=== PATIENT | female | born 1945 | race Two or more races ===

== ENCOUNTER 2024-11-22 10:52 | Emergency (ER) | payer OTHER ==
[~2024-11-22] VITALS: Ht 154.9 cm; Wt 59.4 kg
[2024-11-22] MEDS ORDERED: SYNTHROID75 MCG PO (10:56)
[2024-11-22] MEDS ORDERED: TOPROL XL50 M1 (10:56)
[2024-11-22] MEDS ORDERED: AMLODIPINE (10:56)
[2024-11-22] MEDS ORDERED: 0.9 % SODIUM CHLORIDE 1,000 ML IV SCH (11:15)
[2024-11-22 12:22] LABS: ALT/SGPT 33.0 U/L (12-78); AST/SGOT 18.0 U/L (15-37); BILIRUBIN TOTAL 0.52 mg/dL (0.3-1.2); BUN CREA RATIO 12.0 (7.0-25.0); CREATININE SERUM 0.81 mg/dL (0.55-1.02); GFR 68.21; GLOBULINA 4.0 G/DL (2.4-3.5); GLUCOSE FASTING 118.0 mg/dL (65-100); OSMOLALITY SERUM 278.0 MOSM/KG (275-295)
[2024-11-22 12:33] LABS: BASO % 0.2 % (0.1-1.2); EOS # 0.01 (0.04-0.54); EOS % 0.1 % (0.7-7.0); LYMPH # 1.37 (1.18-3.74); LYMPH % 10.9 % (19.3-53.1); MEAN PLATELET VOLUME 9.60 fl (9.4-12.4); MONO # 0.62 (0.24-0.82); MONO % 4.9 % (4.7-12.5); NEUT # 10.51 (1.56-6.13); NEUT % 83.2 % (34.0-71.1); RED CELL DISTRIBUTION WIDTH 12.9 % (11.6-14.4)
[2024-11-22 12:42] LABS: COVID-19 AG NEGATIVE (NEGATIVE)
[2024-11-22 14:25] LABS: URINE APPEARANCE Clear; URINE BILIRRUBIN Negative (NEGATIVE); URINE BLOOD Negative; URINE COLOR Yellow; URINE GLUCOSE Negative (NEGATIVE); URINE KETONE Negative (NEGATIVE); URINE LEUKOCYTE Small; URINE NITRATE Negative; URINE PROTEIN Negative (NEGATIVE); URINE UROBILINOGEN 1.0 E.U./dl
[2024-11-22 14:26] LABS: URINE EPITHELIAL CELLS 3.2 uL (0.0-38.8); URINE RBC 3.3 uL (0.0-20.8); URINE WBC 51.3 uL (0.0-23.2)
[2024-11-22 14:43] LABS: URINE BACTERIA > 9821.5 uL (0.0-1933); URINE CAST 0.14 uL (0.0-1.40)
[2024-11-22] MEDS ORDERED: CEFTRIAXONE SODIUM 1,000 MG VIAL IV ONE (15:00)
[2024-11-22] MEDS ORDERED: CEPHALEXIN500 MG PO (15:02)
== END 2024-11-22 16:57 | disposition home or self-care (01) ==
LOC: ER 10:52
PROVIDERS: General Practice
DX: N39.0 Urinary tract infection, site not specified (principal); R53.1 Weakness; Z20.822 Contact with and (suspected) exposure to COVID-19; I10 Essential (primary) hypertension; Z88.6 Allergy status to analgesic agent
CPT/HCPCS: 36415; 51702; 96365; 96366; 99282; J0696; J7030